=== PATIENT | male | born 1995 | race Caucasian/White ===

== ENCOUNTER → 2020-06-01 10:10 | Outpatient (BNVA) | payer OTHER, SELFPAY | PROVIDERS: Visit Provider Physician Assistant Medical | DX: S83.92XD Sprain of unspecified site of left knee, subsequent encounter (principal); X58.XXXD Exposure to other specified factors, subsequent encounter | CPT/HCPCS: 99202 ==

== ENCOUNTER → 2020-06-08 09:54 | Outpatient (BNVA) | payer OTHER, SELFPAY | PROVIDERS: Visit Provider Physician Assistant Medical | DX: S83.92XD Sprain of unspecified site of left knee, subsequent encounter (principal); X58.XXXD Exposure to other specified factors, subsequent encounter | CPT/HCPCS: 99213 ==

== ENCOUNTER 2020-06-15 06:54 | Outpatient (REF) | payer OTHER, BC, SELFPAY ==
--- NOTE | 2020-06-15 07:25 | MR_ITS ---
EXAMINATION: MR KNEE WITHOUT CONTRAST, LEFT CLINICAL INFORMATION: Left knee injury, pain COMPARISON: None TECHNIQUE: MRI of the knee without contrast was performed using routine sequences on a high-field scanner. FINDINGS: MENISCI: Medial Meniscus: Intact Lateral Meniscus: Intact LIGAMENTS: Cruciate: Intact Collateral: Intact EXTENSOR MECHANISM: Intact. Borderline patella aftab. ARTICULAR CARTILAGE/BONE: Patellofemoral Compartment: There is a 3 mm focus of articular cartilage signal heterogeneity of the medial patellar facet. Medial Compartment: Normal Lateral Compartment: Normal JOINT FLUID AND BURSAE: No joint effusion. MR/MR knee LT wo con IMPRESSION: There is a 3 mm focus of articular cartilage signal heterogeneity of the medial patellar facet. Otherwise unremarkable MRI of the left knee. No meniscal tear.
== END 2020-06-15 06:55 | disposition home or self-care (01) ==
LOC: HO.MRI 06:54
PROVIDERS: PCP Internal Medicine; Visit Provider Internal Medicine
DX: S89.92XA Unspecified injury of left lower leg, initial encounter (principal); R60.9 Edema, unspecified; R53.1 Weakness
CPT/HCPCS: 73721

== ENCOUNTER → 2020-06-17 16:15 | Outpatient (BNVA) | payer OTHER, SELFPAY | PROVIDERS: PCP Internal Medicine; Visit Provider Physician Assistant Medical | DX: S83.91XA Sprain of unspecified site of right knee, initial encounter (principal); X58.XXXA Exposure to other specified factors, initial encounter | CPT/HCPCS: 99213 ==

== ENCOUNTER → 2020-06-22 10:21 | Outpatient (BNVA) | payer OTHER, SELFPAY | PROVIDERS: Visit Provider Orthopaedic Surgery | DX: M22.2X2 Patellofemoral disorders, left knee (principal) | CPT/HCPCS: 20610; 99202; J1040 ==

== ENCOUNTER → 2020-07-13 09:57 | Outpatient (BNVA) | payer OTHER, SELFPAY | PROVIDERS: Visit Provider Orthopaedic Surgery | DX: M22.2X2 Patellofemoral disorders, left knee (principal) | CPT/HCPCS: 99212 ==

== ENCOUNTER 2020-08-03 08:00 | Outpatient (RCR) | payer OTHER, SELFPAY ==
--- NOTE | 2020-08-10 07:20 | MHC.PT.DC ---
[facility] [place] Office [place] Office [place] Office [address] Pushpa Alatorre [address] [phone] F: [phone] F: [phone] F: [phone] F: [phone] Physical Therapy Discharge Report Diagnosis: Patellofemoral disorders left knee referred by Dr. Harris date of script 06/22/2020 Date of Surgery: N/A to this injury L knee Date of Evaluation: 06/28/20 Date of Discharge: Treatments to Date: 8 Cancellations to Date: 1 No Shows to Date: 0 Discharge Status: Achieved Goals Improved Function Independent with HEP Patient Elected to Stop Discharge Summary: HAS MET MOST PT GOALS (REPORTS HAS ONLY JOGGED 1 MILE SO FAR), GOOD PERF EXS WITHOUT INCREASE IN KNEE PAIN REPORTED. GAVE Pt THE OPTION OF DC TODAY OR TO COME IN FOR LAST SCHEDULED APPT..HE WILL CALL WITH DECISION DEPENDING ON HOW KNEE FEELING OVER THE WEEK. IF CONTINUES, WORK ON HIGHER LEVEL PROP WORK AND PLYOMETRICS, CORE WORK. Pt CALLED TO DC Electronically signed by: GABRIELLE ATKINS PT Please sign and return to therapist. Thank you for your referral.
== END 2020-09-14 15:11 | disposition other institution (70) ==
LOC: HO.PTWFD 08:00
PROVIDERS: Visit Provider Orthopaedic Surgery
DX: M22.2X2 Patellofemoral disorders, left knee (principal)
CPT/HCPCS: 97110; 97112; 97140; 97161; 97530

== ENCOUNTER → 2020-08-23 10:02 | Outpatient (BNVA) | payer OTHER, SELFPAY | PROVIDERS: Visit Provider Orthopaedic Surgery | DX: M22.2X2 Patellofemoral disorders, left knee (principal) | CPT/HCPCS: 99212 ==

== ENCOUNTER → 2024-07-23 12:37 | Outpatient (BNVA) | payer OTHER, SELFPAY | PROVIDERS: Visit Provider Physician Assistant Medical | DX: M23.91 Unspecified internal derangement of right knee (principal); S83.8X1A Sprain of other specified parts of right knee, initial encounter; W18.43XA Slipping, tripping and stumbling without falling due to stepping from one level to another, initial encounter; X50.1XXA Overexertion from prolonged static or awkward postures, initial encounter | CPT/HCPCS: 73564; 99203 ==